=== PATIENT | female | born 1955 | race Caucasian/White ===

== ENCOUNTER 2022-09-02 19:06 | Emergency (ER) | payer MEDICARE, OTHER ==
[~2022-09-02] VITALS: Ht 152.4 cm; Wt 65.8 kg
--- NOTE | 2022-09-02 20:03 | NUR ---
DR JOSE AGUILAR AT PT'S BEDSIDE FOR EVAL
--- NOTE | 2022-09-02 20:39 | NUR ---
X RAY AT BEDSIDE.
[2022-09-02 21:10] VITALS: BP 136/76
[2022-09-02] MEDS ORDERED: KETOROLAC TROMETHAMINE 15 MG/ML VIAL ONE (21:30)
[2022-09-02] MEDS ORDERED: KETOROLAC TROMETHAMINE INJ 30 MG/ML VIAL IV ONE (21:30)
--- NOTE | 2022-09-02 22:50 | NUR ---
PT TAKEN TO CT VIA [facility]
--- NOTE | 2022-09-02 23:06 | NUR ---
PT RETURNED TO ER BED [address]
[2022-09-02] MEDS ORDERED: LIDO30AD10 TP (23:54)
[2022-09-02] MEDS ORDERED: IBUP-1955 PO (23:54)
--- NOTE | 2022-09-02 23:57 | NUR ---
SLING APPLIED TO R ARM
--- NOTE | 2022-09-03 00:37 | NUR ---
Patient discharged to home in stable condition. Written and verbal after care instructions given. Patient verbalizes understanding of instruction.
== END 2022-09-03 00:38 | disposition home or self-care (01) ==
LOC: ER 19:12
DX: S46.911A Strain of unspecified muscle, fascia and tendon at shoulder and upper arm level, right arm, initial encounter (principal); W01.0XXA Fall on same level from slipping, tripping and stumbling without subsequent striking against object, initial encounter; Y93.89 Activity, other specified; Y92.89 Other specified places as the place of occurrence of the external cause; Y99.8 Other external cause status
CPT/HCPCS: 99285; 96374; 73200; 73080; 73030; J1885